=== PATIENT | female | born 1930 | race Caucasian/White ===

== ENCOUNTER 2017-08-14 10:59 | Emergency (ER) | payer MEDICARE, BC ==
[2017-08-14 11:13] VITALS: BP 149/54
--- NOTE | 2017-08-14 11:50 | EDM.PDOC ---
ED HPI GENERAL MEDICAL PROBLEM - General Chief Complaint: Lower Extremity Injury/Pain Stated Complaint: RT LEG PAIN Time Seen by Provider: 08/14/17 11:23 Source of Information: Reports: Patient, RN Notes Reviewed - History of Present Illness INITIAL COMMENTS - FREE TEXT/NARRATIVE: 87-year-old female comes in with pain right groin. She was having right foot discomfort a few days ago. Her foot had been very painful to walk on it for a day or 2. Foot pain is now gone but now she does have pain in the right groin with motion of her leg and with weightbearing. There's been no recent fall or injury. She has no current back or flank discomfort. No pain at rest, it is strictly with motion of the leg or weightbearing. Her Son was worried about possible blood clots and therefore urged her to come in, have this checked out. Right Leg Pain Score (Numeric/FACES): 7 - Related Data Allergies Allergy/AdvReac Type Severity Reaction Status Date / Time No Known Allergies Allergy Verified 08/14/17 11:09 Home Meds: Home Meds B2/Vit A,C & E/Lut/Zeaxanth/Mn [Icaps] 1 tab PO DAILY 05/30/14 [History] Furosemide [Lasix] 20 mg PO DAILY 05/30/14 [History] Omeprazole 20 mg PO DAILY 05/30/14 [History] Potassium Chloride 10 meq PO DAILY 05/30/14 [History] amLODIPine [Norvasc] 5 mg PO DAILY 05/30/14 [History] Past Medical History Cardiovascular History: Reports: Hypertension Oncologic (Cancer) History: Reports: Breast - Past Surgical History Musculoskeletal Surgical History: Reports: Knee Replacement Social & Family History - Tobacco Use Smoking Status *Q: Never Smoker Review of Systems - Review of Systems Review Of Systems: See Below Constitutional: Reports: No Symptoms Mouth/Throat: Reports: No Symptoms Respiratory: Denies: Shortness of Breath Cardiovascular: Denies: Chest Pain GI/Abdominal: Denies: Abdominal Pain, Nausea, Vomiting Musculoskeletal: Reports: Joint Pain (Pain in the right groin with weightbearing and with motion right lower extremity). Denies: Back Pain Skin: Reports: No Symptoms Neurological: Denies: Numbness, Tingling ED EXAM, GENERAL - Physical Exam Exam: See Below General Appearance: Alert, No Apparent Distress Head: Atraumatic Neck: Supple Respiratory/Chest: No Respiratory Distress Cardiovascular: Regular Rate, Rhythm Extremities: Other (Right thigh, right posterior calf nontender, no swelling warmth or erythema, right groin nontender, mild pain with motion of lower extremity at the hip joint). No: Pedal Edema, Leg Pain, Increased Warmth, Redness Neurological: No Motor/Sensory Deficits Skin Exam: Warm, Dry, Normal Color. No: Erythema Course - Vital Signs Last Recorded V/S: Last Vital Signs Temp 97.8 F 08/14/17 11:09 Pulse 80 08/14/17 11:09 Resp 18 08/14/17 11:09 BP 149/54 H 08/14/17 11:09 Pulse Ox 97 08/14/17 11:09 - Orders/Labs/Meds Orders: Active Orders 24 hr Category Date Time Status Hip Min 2V or 3V w Pelvis Rt [CR] Stat Exams 08/14/17 11:24 Taken - Re-Assessments/Exams Free Text/Narrative Re-Assessment/Exam: 08/14/17 12:26 X-ray of right hip and pelvis does show degenerative change bilaterally, no evidence for fracture or other apparent abnormality. Departure - Departure Time of Disposition: 12:01 Disposition: Home, Self-Care 01 Condition: Fair Clinical Impression: Hip pain, right - Discharge Information Instructions: Hip Pain Referrals: Gina Dyer MD [Primary Care Provider] - Forms: ED Department Discharge Additional Instructions: Rest leg and hip for a few days, than increase activity slowly as tolerated, you may safely take Tylenol 3-4 times daily if needed for discomfort, alternating ice and heat also may help this resolve more quickly. Follow-up clinic if pain doesn't completely go away within 3-5 days as expected, return to ED as needed if symptoms worsening in any way. There is no evidence for blood clots today. - My Orders Last 24 Hours: My Active Orders 08/14/17 11:24 Hip Min 2V or 3V w Pelvis Rt [CR] Stat - Assessment/Plan Last 24 Hours: My Active Orders 08/14/17 11:24 Hip Min 2V or 3V w Pelvis Rt [CR] Stat
--- NOTE | 2017-08-15 07:56 | CR ---
Pelvis and right hip: AP view of the pelvis was obtained as well as AP and frog-leg lateral views of the right hip. Comparison: No previous pelvis or hip exam Osteophytes are seen off the right femoral head. Medial joint space narrowing is seen within the right hip. Mild medial joint space narrowing is seen within the medial left hip. Disc space narrowing is noted within the visualized lower lumbar spine with slight scoliosis. Osteopenia is seen. Mild vascular calcification is noted. Degenerative change is noted within the sacroiliac joints. Impression: 1. Moderate degenerative change within the right hip and mild degenerative change within the left hip. 2. Degenerative change also seen within the sacroiliac joints and lumbar spine. 3. Other incidental findings. Diagnostic code #3
== END 2017-08-14 12:05 | disposition home or self-care (01) ==
LOC: JD.ED 10:59
DX: M25.551 Pain in right hip (principal); I10 Essential (primary) hypertension; Z79.899 Other long term (current) drug therapy
CPT/HCPCS: 73502-26-RT; 73502-RT; 99283